=== PATIENT | male | born 1970 | race Caucasian/White ===

== ENCOUNTER 2022-08-23 09:07 | Emergency (ER) | payer BC, SELFPAY ==
[2022-08-23 09:12] VITALS: BP 146/88; PULSE 120; RESP 20; TEMP 37.6; O2SAT 97
--- NOTE | 2022-08-23 09:14 | ED.URI ---
HPI - URI/Sore Throat General Chief Complaint: Upper Respiratory Infection Stated Complaint: Chest Congestion/Cough/Eye Problem Source: patient and RN notes reviewed History of Present Illness HPI Narrative: 51-year-old male presents to urgent care with complaints of cough and congestion x1 week. Patient states his had the same thing is that she has gotten better however his symptoms are persisting. Patient states he now has bilateral eye drainage and redness x2 days. Patient reports shortness of breath with exertion. He reports chest pain and lower rib pain with coughing. Denies any fevers, chills, vomiting, diarrhea, sore throat, or ear pain. Patient has attempted taking a cough medicine yesterday without relief. Some parts of this dictation were generated by voice recognition software and may contain typographical and/or grammatical inaccuracies. Related Data Home Medications Medication Instructions Recorded Confirmed venlafaxine 150 mg 150 mg PO DAILY 08/23/22 08/23/22 capsule,extended release 24 hr Allergies Allergy/AdvReac Type Severity Reaction Status Date / Time No Known Allergies Allergy Verified 08/23/22 09:19 Review of Systems Review of Systems: Pertinent positives and pertinent negatives per HPI. PMFSH Comments At the time of my signature, I reviewed and agree with the nursing past medical, surgical, social, and family history. There is no relevant family history pertinent to the patient complaint. Exam Narrative: GENERAL: This is a well-nourished, well-developed patient, in no apparent distress. HEAD: normocephalic, atraumatic. EYES: Bilateral lower conjunctivae injected, worse on right. Dried yellow drainage from both eyes. EARS: External ears normal, auditory canals clear and without drainage, TMs normal without perforation. Hearing grossly intact. NOSE: External nose normal with obvious nasal discharge, nares inflamed and erythremic. THROAT: Mucous membranes moist, posterior pharynx clear. NECK: Neck supple, non-tender without lymphadenopathy, masses or thyromegaly. CARDIOVASCULAR: Tachycardia and rhythm without murmurs, gallops, or rubs. RESPIRATORY: Clear to auscultation. Breath sounds equal bilaterally. Rhonchi and slight wheezes noted. GASTROINTESTINAL: Abdomen soft, non-tender, nondistended. Bowel sounds are active. No hepato-splenomegaly, or palpable masses. No guarding. SKIN: warm, intact with no suspicious lesions or rash, good texture and turgor. NEURO: awake, alert, and oriented to person, place and time. There were no obvious focal neurologic abnormalities. Course Course Level of Care: Express Care Visit Vital Signs Vital signs: Vital Signs Temperature 99.6 F 08/23/22 09:12 Pulse Rate 120 H 08/23/22 09:12 Respiratory Rate 20 08/23/22 09:12 Blood Pressure 146/88 H 08/23/22 09:12 Pulse Oximetry 97 08/23/22 09:12 Oxygen Delivery Room Air 08/23/22 09:12 Temperature 99.6 F 08/23/22 09:12 Pulse Rate 120 H 08/23/22 09:12 Respiratory Rate 20 08/23/22 09:12 Blood Pressure 146/88 H 08/23/22 09:12 Pulse Oximetry 97 08/23/22 09:12 Oxygen Delivery Room Air 08/23/22 09:12 Reviewed MDM - URI/Sore Throat MDM Narrative Medical decision making narrative: Take steroids as directed. May use the inhaler every 4-6 hours as needed for coughing. Increase fluids at home. Avoid any and all smoke. May use a humidifier in the bedroom. Increase your Vitamin C. Follow-up with personal physician in 2-5 days. Go to the ER for any new or worsening symptoms. Avoid smoking/second-hand smoke. Continue to take Tylenol or Motrin for pain. Increase your Vitamin C intake. Use a humidifier or vaporizer at night. Take Medications as prescribed. Drink plenty of water. 8-10 glasses per day. Use flonase 2 times per day for 5 days then as needed Take mucinex 2 times per day and be sure to take with 8oz of water. Follow up with Primary provider if not getting
[2022-08-23] MEDS: predniSONE 20 MG TABLET 60 MG PO (09:33)
== END 2022-08-23 09:32 | disposition home or self-care (01) ==
PROVIDERS: Emergency Provider Nurse Practitioner Family; PCP Family Medicine
DX: J40 Bronchitis, not specified as acute or chronic (principal); J01.00 Acute maxillary sinusitis, unspecified
CPT/HCPCS: 99203; G0463; J7512